=== PATIENT | male | born 1965 | race Caucasian/White ===

== ENCOUNTER 2023-11-18 08:58 | Day surgery (SDC) | payer BC ==
[~2023-11-18 08:58] MED LIST: Sodium Chloride 0.9% 10 ML Syringe FLUSH PRN; Sodium Chloride 0.9% 2.5 ML Syringe FLUSH PRN; Sodium Chloride 0.9% 20 ML SDV IV PRN
[2023-11-18] MEDS: Lactated Ringers 1,000 ML IV SCH (09:55)
[2023-11-18] MEDS ORDERED: propofoL 50 ML ONE (10:36)
[2023-11-18 12:08] VITALS: BP 82/53; PULSE 59
== END 2023-11-18 12:20 | disposition home or self-care (01) ==
LOC: MW.SDS 08:58
PROVIDERS: ATTEND Surgery
DX: Z12.11 Encounter for screening for malignant neoplasm of colon (principal); K62.1 Rectal polyp; K64.1 Second degree hemorrhoids; F31.9 Bipolar disorder, unspecified; K40.90 Unilateral inguinal hernia, without obstruction or gangrene, not specified as recurrent; F17.210 Nicotine dependence, cigarettes, uncomplicated; Z79.899 Other long term (current) drug therapy
CPT/HCPCS: 45380; J2704; J7120

== ENCOUNTER 2023-11-20 06:04 | Day surgery (SDC) | payer BC ==
[~2023-11-20 06:04] MED LIST changes: +ceFAZolin 2 GM in Sodium Chloride 0.9% 50 ML IV ONE
[2023-11-20] MEDS: Lactated Ringers 1,000 ML IV SCH (07:09)
[2023-11-20] MEDS ORDERED: Bupivacaine 0.5% 30 ML SDV ONE (07:16)
[2023-11-20] MEDS ORDERED: fentaNYL 50 MCG/ML SDV IVPUSH PRN (07:21)
[2023-11-20] MEDS ORDERED: Naloxone 0.4 MG/ML SDV IVPUSH PRN (07:21)
[2023-11-20] MEDS ORDERED: Ondansetron 4 MG/2 ML SDV IVPUSH PRN (07:21)
[2023-11-20] MEDS ORDERED: droPERidol 5 MG/2 ML SDV IVPUSH PRN (07:21)
[2023-11-20] MEDS ORDERED: Metoclopramide 10 MG/2 ML SDV IVPUSH PRN (07:21)
[2023-11-20] MEDS ORDERED: Albuterol 0.083% 2.5 MG/3 ML Neb Soln NEB PRN (07:21)
[2023-11-20] MEDS ORDERED: HYDROmorphone 1 MG/ML Syringe IVPUSH PRN (07:21)
[2023-11-20] MEDS ORDERED: Morphine 2 MG/ML SYRINGE IVPUSH PRN (07:21)
[2023-11-20] MEDS ORDERED: dexmedeTOMIDine HCl 200 MCG/2 ML SDV ONE (07:23)
[2023-11-20] MEDS ORDERED: fentaNYL 100 MCG/2 ML SDV ONE (07:24)
[2023-11-20] MEDS ORDERED: Propofol 200 MG/20 ML SDV ONE (07:24)
[2023-11-20] MEDS ORDERED: Water For Injection, Sterile 20 ML ONE (07:25)
[2023-11-20] MEDS ORDERED: Rocuronium Bromide 50 MG/5 ML Syringe ONE (07:27)
[2023-11-20] MEDS ORDERED: Bupivacaine 0.25% 30 ML SDV ONE (07:33)
[2023-11-20] MEDS ORDERED: Bupivacaine 0.5%/EPINEPHrine 1:200,000 30 ML SDV ONE (07:33)
[2023-11-20] MEDS ORDERED: ceFAZolin 2 GM Vial ONE (08:10)
[2023-11-20] MEDS ORDERED: Ondansetron 4 MG/2 ML SDV ONE (08:24)
[2023-11-20] MEDS ORDERED: Dexamethasone 4 MG/ML 5 ML MDV ONE (08:24)
[2023-11-20] MEDS ORDERED: ePHEDrine 50 MG/ML SDV ONE (08:33)
[2023-11-20] MEDS ORDERED: Ketorolac 30 MG/ML SDV ONE (08:45)
[2023-11-20] MEDS ORDERED: Sugammadex Sodium 200 MG/2 ML VIAL IV ONE (08:45)
[2023-11-20 10:47] VITALS: BP 128/73; PULSE 69
== END 2023-11-20 10:40 | disposition home or self-care (01) ==
LOC: MW.SDS 06:04
PROVIDERS: ATTEND Surgery
DX: K40.90 Unilateral inguinal hernia, without obstruction or gangrene, not specified as recurrent (principal); F17.210 Nicotine dependence, cigarettes, uncomplicated
CPT/HCPCS: 49505; 64488; J0131; J0665; J0690; J1100; J1885; J2405; J2704; J3010; J3490; J7120

== ENCOUNTER 2024-04-15 22:28 | Emergency (ER) | payer BC ==
[2024-04-15 23:27] VITALS: BP 109/65; PULSE 63
[2024-04-16] MEDS: Diphtheria,Pertussis(Acell),Tetanus Vaccine 0.5 ML Syringe IM ONE (00:02)
[2024-04-16] MEDS: Amoxicillin/Clavulanate K 875-125 MG Tab PO ONE (00:02)
[2024-04-16] MEDS: Lidocaine 1% 5 ML VIAL INJECT ONE (00:02)
== END 2024-04-16 00:19 | disposition home or self-care (01) ==
LOC: MW.ED 22:28
DX: S60.352A Superficial foreign body of left thumb, initial encounter (principal); Z23 Encounter for immunization; Z75.8 Other problems related to medical facilities and other health care; W45.8XXA Other foreign body or object entering through skin, initial encounter
CPT/HCPCS: 73140; 90471; 90715; 99283; A9270; J3490

== ENCOUNTER 2025-03-08 06:45 | Day surgery (SDC) | payer BC ==
[~2025-03-08 06:45] MED LIST changes: -ceFAZolin 2 GM in Sodium Chloride 0.9% 50 ML IV ONE; +ceFAZolin 2 GM in Water For Injection, Sterile 20 ML IVPUSH ONE
[2025-03-08] MEDS ORDERED: Bupivacaine 0.5% 30 ML SDV ONE (07:06)
[2025-03-08] MEDS ORDERED: fentaNYL 100 MCG/2 ML SDV ONE (07:22)
[2025-03-08] MEDS ORDERED: Propofol 200 MG/20 ML SDV ONE (07:22)
[2025-03-08] MEDS ORDERED: Midazolam 1 MG/ML 2 ML SDV ONE (07:22)
[2025-03-08] MEDS ORDERED: Rocuronium Bromide 50 MG/5 ML Syringe ONE (07:23)
[2025-03-08] MEDS ORDERED: Ketorolac 30 MG/ML SDV ONE (07:23)
[2025-03-08] MEDS ORDERED: Ondansetron 4 MG/2 ML SDV ONE (07:23)
[2025-03-08] MEDS ORDERED: Dexamethasone 4 MG/ML 5 ML MDV ONE (07:23)
[2025-03-08] MEDS: Lactated Ringers 1,000 ML IV SCH (07:23)
[2025-03-08] MEDS ORDERED: Lidocaine 1% 5 ML VIAL ONE (07:23)
[2025-03-08] MEDS ORDERED: Albuterol 0.083% 2.5 MG/3 ML Neb Soln NEB PRN (07:26)
[2025-03-08] MEDS ORDERED: Ondansetron 4 MG/2 ML SDV IVPUSH PRN (07:26)
[2025-03-08] MEDS ORDERED: Morphine 2 MG/ML SYRINGE IVPUSH PRN (07:26)
[2025-03-08] MEDS ORDERED: fentaNYL 50 MCG/ML SDV IVPUSH PRN (07:26)
[2025-03-08] MEDS ORDERED: Phenylephrine HCl In 0.9% NaCl 1 MG/10 ML Syringe IVPUSH PRN (07:26)
[2025-03-08] MEDS ORDERED: Metoclopramide 10 MG/2 ML SDV IVPUSH PRN (07:26)
[2025-03-08] MEDS ORDERED: Naloxone 0.4 MG/ML SDV IVPUSH PRN (07:26)
[2025-03-08] MEDS ORDERED: Sodium Chloride 0.9% 20 ML ONE (07:26)
[2025-03-08] MEDS ORDERED: dexmedeTOMIDine HCl 200 MCG/2 ML SDV ONE (07:26)
[2025-03-08] MEDS ORDERED: HYDROmorphone 1 MG/ML Syringe IVPUSH PRN (07:26)
[2025-03-08] MEDS ORDERED: Ropivacaine 0.5% 5 MG/ML 30 ML SDV ONE (07:31)
[2025-03-08] MEDS ORDERED: ceFAZolin 1 GM Vial ONE (08:18)
[2025-03-08 13:23] VITALS: BP 106/67; PULSE 76
== END 2025-03-08 10:48 | disposition home or self-care (01) ==
LOC: MW.SDS 06:45
PROVIDERS: ATTEND Surgery
DX: K40.90 Unilateral inguinal hernia, without obstruction or gangrene, not specified as recurrent (principal); F17.210 Nicotine dependence, cigarettes, uncomplicated
CPT/HCPCS: 49505; 64488; J0665; J0690; J1100; J1885; J2003; J2250; J2704; J2795; J7120; 00830; 64486; J2405; J3010; J3490

== ENCOUNTER 2025-03-25 07:40 | Day surgery (SDC) | payer BC ==
[~2025-03-25 07:40] MED LIST changes: +Ropivacaine 0.5% 5 MG/ML 30 ML SDV ONE; -Sodium Chloride 0.9% 10 ML Syringe FLUSH PRN; -Sodium Chloride 0.9% 2.5 ML Syringe FLUSH PRN; -Sodium Chloride 0.9% 20 ML SDV IV PRN; -ceFAZolin 2 GM in Water For Injection, Sterile 20 ML IVPUSH ONE
== END 2025-03-25 08:30 | disposition home or self-care (01) ==
LOC: MW.SDS 07:40
PROVIDERS: ATTEND Anesthesiology
DX: R10.30 Lower abdominal pain, unspecified (principal); F17.210 Nicotine dependence, cigarettes, uncomplicated
CPT/HCPCS: 64425; J2795; 64486